=== PATIENT | female | born 1985 | race Caucasian/White ===

== ENCOUNTER 2018-01-03 09:53 | Emergency (ER) | payer MEDICARE, MEDICAID ==
[2018-01-03] MEDS ORDERED: NS 0.9% 1000 ML* 1,000 ML IV ONE ×2 (10:48→15:07)
[2018-01-03 15:40] LABS: EGFR Non-African American 90.1 (>60)
[2018-01-03 19:56] VITALS: BP 107/64
--- NOTE | 2018-01-03 21:17 | ED ---
Queenie Case Nilda, scribed for Giovanni Neff MD on 01/03/18 at 1015 . Substance Abuse/Use - HPI Summary HPI Summary: This patient is a 32 year old F BIBA with a chief complaint of accidentally taking morning medications twice, once at 0730 and another round at 0830 this morning. Pt normally takes Depakote (1500mg), Lamictal (200mg), and Trileptal ( approx. 300 mg) once every morning, but unintentionally doubled this dose today. Patient notes these medications are prescribed by her psychiatrist solely as mood stabilizers. The patient rates the pain 0/10 in severity. Patient reports blurry vision and GARCIA. Patient denies CP, palpitations, SOB, HI, SI, depression at this moment, fever, chills, and N/V/D. Symptoms aggravated by accidental medication noncompliance and alleviated by nothing. Pt states she contacted Poison Control REFLOW OPERATOR, and they recommended she come to ED. Pt states she last saw psychiatrist 2 weeks ago. NKDA. MARSH is now. - History Of Current Complaint Stated Complaint: OVERDOSE Time Seen by Provider: 01/03/18 10:06 Hx Obtained From: Patient Onset/Duration of Drug/ETOH Abuse: Hours Ingestion History: Type/Name Of Drug - Depakote (1500mg), Limictal (200mg), and Trileptal (approx. 300 mg), Amount Ingested - Depakote (1500mg), Limictal (200mg ), and Trileptal (approx. 300 mg), Approximate Time Of Ingestion - 0730 and 0830 Overdose Characteristics: Oral Aggravating Factor(s): Medication Non-compliance - accidental Alleviating Factor(s): Nothing Associated Signs And Symptoms: Unintentional OTC, Other: - reports blurry vision and GARCIA; negative CP, palpitations, SOB, HI, SI, depression at this moment , fever, chills, and N/V/D. - Allergies/Home Medications Allergies/Adverse Reactions: Allergies Allergy/AdvReac Type Severity Reaction Status Date / Time No Known Allergies Allergy Verified 01/03/18 11:10 Home Medications: Home Medications Divalproex ER TAB(*) [Depakote ER TAB(*)] 1,500 mg PO DAILY 01/03/18 [History Confirmed 01/03/18] OXcarbazepine TAB(*) [Trileptal 300 mg TAB(*)] 300 mg PO QPM 01/03/18 [History Confirmed 01/03/18] OXcarbazepine TAB(*) [Trileptal 300 mg TAB(*)] 600 mg PO QAM 01/03/18 [History Confirmed 01/03/18] lamoTRIgine TAB(*) [LaMICtal TAB(*)] 200 mg PO DAILY 01/03/18 [History Confirmed 01/03/18] PMH/Surg Hx/FS Hx/Imm Hx Sensory History: Denies: Hx Legally Blind EENT History: Denies: Hx Deafness - Family History Known Family History: Negative: Cardiac Disease, Hypertension - Social History Hx Substance Use: Yes Substance Use Type: Reports: Marijuana Hx Tobacco Use: Yes Smoking Status (MU): Light Every Day Tobacco Smoker Review of Systems Negative: Fever, Chills Positive: Blurred Vision Negative: Palpitations, Chest Pain Negative: Shortness Of Breath Negative: Vomiting, Diarrhea, Nausea Neurological: Other - accidental OD Positive: Headache Psychological: Other - negative HI, SI Negative: Depressed All Other Systems Reviewed And Are Negative: Yes Physical Exam - Summary Physical Exam Summary: GENERAL: Patient is a well developed and nourished F who is lying comfortable in the stretcher. Patient is not in any acute respiratory distress. HEAD AND FACE: Normocephalic EYES: PERRLA, EOMI x 2. EARS: Hearing grossly intact. MOUTH: Oropharynx within normal limits. NECK: Supple, trachea is midline, no adenopathy, no JVD, no carotid bruit. CHEST: Symmetric, no tenderness at palpation LUNGS: Clear to auscultation bilaterally. No wheezing or crackles. CVS: Regular rate and rhythm, S1 and S2 present, no murmurs or gallops appreciated. ABDOMEN: Soft, non-tender. Bowel sounds are normal. No abdominal abnormal pulsations. EXTREMITIES: Full ROM in all major joints, no edema, no cyanosis or clubbing. NEURO: Alert and oriented x 3. No acute neurological deficits. Speech is normal and follows commands. Cranial nerve II-XII intact. No dysmetria on finger to nose PSYCH: Normal affect. Linear thought process and content. No SI or HI. SKIN: Dry and warm Triage Information Reviewed: Yes Vital Signs On Initial Exam: Initial Vitals Temp Pulse Resp BP Pulse Ox 98.5 F 92 16 110/75 100 01/03/18 10:04 01/03/18 10:04 01/03/18 10:04 01/03/18 10:04 01/03/18 10:04 Vital Signs Reviewed: Yes Diagnostics - Laboratory Result Diagrams: 01/03/18 15:14 Lab Statement: Any lab studies that have been ordered have been reviewed, and results considered in the medical decision making process. - EKG 1103 Cardiac Rate: NL EKG Rhythm: Sinus Rhythm - 78 bpm EKG Interpretation: nml intervals Re-Evaluation - Re-Evaluation First Eval Re-Evaluation Time: 11:48 Change: Improved Comment: Pt remains neurologically intact, and reports feeling better from numbness/GARCIA sensation. Second Eval Re-Evaluation Time: 19:40 Comment: Lab results discussed with pt in great detail. Pt was once again asked if she is suicidal or homicidal and she completely denies it. Course/Dx - Course Assessment/Plan: This patient is a 32 year old F BIBA with a chief complaint of accidentally taking morning medications twice, once at 0730 and another round at 0830 this morning. Pt normally takes Depakote (1500mg), Lamictal (200mg), and Trileptal (approx. 300 mg) once every morning. Patient notes these medications are prescribed by her psychiatrist as solely mood stabilizers. The patient rates the pain 0/10 in severity. Patient reports blurry vision and GARCIA. Patient denies CP, palpitations, SOB, HI, SI, depression at this moment, fever, chills, and N/V/D. Symptoms aggravated by accidental medication noncompliance and alleviated by nothing. Pt states she contacted Poison Control REFLOW OPERATOR, and they recommended she come to ED. Pt states she last saw psychiatrist 2 weeks ago. NKDA. MARTAMP is now. An EKG reveals NSR, 78bpm, normal intervals. At approx 1045 , Poison control was consulted and they recommended getting a Valproic acid level, Trileptal level, ammonia level, EKG, and IV fluids. Valproic acid was elevated at 127. Poison control was re-contacted and they recommended repeat Valproic acid in six hours from previous. They also wanted us to add electrolytes, aspirin, Tylenol, and ETOH levels as well as more IV fluids and MHE because the Valproic acid is higher than what it should be for just an extra dose. Upon re-evaluation, pt is hemodynamically stable. Repeat Valproic acid lvl normalized to 96. Nurse Kalpana discussed with poison control who closed the case and states pt is safe to go home from their stand point. Results discussed with pt in great details. She will f/u with her psychiatrist. Pt was once again asked if she is suicidal or homicidal and she completely denies it. - Diagnoses Provider Diagnoses: Accidental overdose Discharge - Sign-Out/Discharge Documenting (check all that apply): Discharge - home - Discharge Plan Condition: Stable Disposition: HOME Patient Education Materials: Adult Overdose (ED) Referrals: [facility] PHYSICIAN REFERRAL [Outside] Additional Instructions: Follow up with your psychiatrist in 1-3 days. RETURN TO THE EMERGENCY DEPARTMENT FOR CHANGING OR WORSENING SYMPTOMS. The documentation as recorded by the Queenie bhakta Nilda accurately reflects the service I personally performed and the decisions made by me, Candida Neff MD.
== END 2018-01-03 20:00 | disposition home or self-care (01) ==
LOC: ED 09:53
DX: T42.6X1A Poisoning by other antiepileptic and sedative-hypnotic drugs, accidental (unintentional), initial encounter (principal); R51 Headache; H53.8 Other visual disturbances; Y92.009 Unspecified place in unspecified non-institutional (private) residence as the place of occurrence of the external cause; Z32.02 Encounter for pregnancy test, result negative; F17.210 Nicotine dependence, cigarettes, uncomplicated
CPT/HCPCS: 36415; 80048; 80076; 80164; 80183; 80320; 80329; 82140; 84702; 93005; 96360; 96361; 99284; G0480

== ENCOUNTER 2018-04-23 12:55 | Emergency (ER) | payer MEDICARE, MEDICAID ==
[2018-04-23 14:33] LABS: ABS Basophils 0 10^3/ul (0-0.2); ABS Eosinophils 0 10^3/ul (0-0.6); ABS Monocytes 0.6 10^3/ul (0-0.8); ABS Neutrophils 5.2 10^3/ul (1.5-7.7); ABS Nucleated RBC 0 10^3/ul; Eosinophil % 0.4 % (0-6); Hematocrit 43 % (35-47); Hemoglobin 14.6 g/dl (12.0-16.0); Lymphocyte % 25.6 % (25-47); Mean Corpuscular HGB Conc 34 g/dl (31-36); Mean Corpuscular Hemoglobin 33 pg (27-31); Mean Corpuscular Volume 97 fL (80-97); Mean Platelet Volume 8.1 um3 (7.4-10.4); Nucleated Red Blood Cells % 0; Platelet Count 284 10^3/ul (150-450); Red Blood Count 4.39 10^6/ul (4.00-5.40); Red Cell Distribution Width 12 % (10.5-15); White Blood Count 7.9 10^3/ul (3.5-10.8)
--- NOTE | 2018-04-23 14:45 | ED ---
Abdominal Pain/Female - HPI Summary HPI Summary: This is yony Piña documenting for attending Dr. Candida MD. The patient is a 32 y/o F presenting to [facility] c/o stabbing bilateral inguinal abd pain starting two weeks ago. The pain is similar to the pain she had when she had her Mirena IUD placed in January at [facility]. She had a follow up to make sure the IUD was placed correctly, and she had STD testing done. She visited Urgent Care at time of onset, but the pain has persisted. She states that cultures were not done, and she had a test that was negative. The pain is rated 6/10 in severity. She denies fevers, chills, vaginal discharge , nausea, and vomiting. She was last sexually active two weeks ago and hasn't been active since onset of pain. She smokes a half a pack of cigarettes a day but does not smoke recreational drugs or drink EtOH. - History of Current Complaint Chief Complaint: EDAbdPain Stated Complaint: IUD PAINFUL Time Seen by Provider: 04/23/18 14:01 Hx Obtained From: Patient Onset/Duration: Sudden Onset, Lasting Weeks - two weeks, Still Present Timing: Constant Severity Initially: Moderate Severity Currently: Moderate Pain Intensity: 6 Pain Scale Used: 0-10 Numeric Location: Groin - bilateral Radiates: No Character: Sharp, Other: - stabbing Aggravating Factor(s): Nothing Alleviating Factor(s): Nothing Associated Signs and Symptoms: Positive: Negative - chills. Negative: Fever, Vaginal Discharge, Nausea, Vomiting Allergies/Adverse Reactions: Allergies Allergy/AdvReac Type Severity Reaction Status Date / Time No Known Allergies Allergy Verified 04/23/18 14:41 Home Medications: Home Medications Vistaril 25 mg PO TID PRN 04/23/18 [History Confirmed 04/23/18] PMH/Surg Hx/FS Hx/Imm Hx Sensory History: Denies: Hx Legally Blind, Hx Deafness Opthamlomology History: Denies: Hx Legally Blind EENT History: Denies: Hx Deafness Infectious Disease History: No Infectious Disease History: Denies: Traveled Outside the [place] in Last 30 Days - Family History Known Family History: Negative: Cardiac Disease, Hypertension - Social History Alcohol Use: None Hx Substance Use: Yes Substance Use Type: Reports: Marijuana Hx Tobacco Use: Yes Smoking Status (MU): Heavy Every Day Tobacco Smoker Review of Systems Negative: Fever, Chills Positive: Abdominal Pain - bilateral inguinal pain. Negative: Vomiting, Nausea Negative: discharge All Other Systems Reviewed And Are Negative: Yes Physical Exam - Summary Physical Exam Summary: GENERAL: Patient is a well developed and nourished female who is lying comfortable in the stretcher. Patient is not in any acute respiratory distress. HEAD AND FACE: Normocephalic EYES: PERRLA, EOMI x 2. EARS: Hearing grossly intact. MOUTH: Oropharynx within normal limits. NECK: Supple, trachea is midline, no adenopathy, no JVD, no carotid bruit. CHEST: Symmetric, no tenderness at palpation LUNGS: Clear to auscultation bilaterally. No wheezing or crackles. CVS: Regular rate and rhythm, S1 and S2 present, no murmurs or gallops appreciated. ABDOMEN: Soft, non-tender. Bowel sounds are normal. No abdominal abnormal pulsations. : PATIENT DECLINED EXTREMITIES: Full ROM in all major joints, no edema, no cyanosis or clubbing. NEURO: Alert and oriented x 3. No acute neurological deficits. Speech is normal and follows commands. SKIN: Dry and warm Triage Information Reviewed: Yes Vital Signs On Initial Exam: Initial Vitals Temp Pulse Resp BP Pulse Ox 98.8 F 100 14 110/81 100 04/23/18 13:00 04/23/18 13:00 04/23/18 13:00 04/23/18 13:00 04/23/18 13:00 Vital Signs Reviewed: Yes Diagnostics - Vital Signs Vital Signs Temp Pulse Resp BP Pulse Ox 04/23/18 13:00 98.8 F 100 14 110/81 100 - Laboratory Lab Results: Lab Results 04/23/18 Range/Units 14:22 WBC 7.9 (3.5-10.8) 10^3/ul RBC 4.39 (4.00-5.40) 10^6/ul Hgb 14.6 (12.0-16.0) g/dl Hct 43 (35-47) % MCV 97 (80-97) fL MCH 33 H (27-31) pg MCHC 34 (31-36) g/dl RDW 12 (10.5-15) % Plt Count 284 (150-450) 10^3/ul MPV 8.1 (7.4-10.4) um3 Neut % (Auto) 66.0 (38-83) % Lymph % (Auto) 25.6 (25-47) % Pepin % (Auto) 7.6 H (0-7) % Eos % (Auto) 0.4 (0-6) % Baso % (Auto) 0.4 (0-2) % Absolute Neuts (auto) 5.2 (1.5-7.7) 10^3/ul Absolute Lymphs (auto) 2.0 (1.0-4.8) 10^3/ul Absolute Monos (auto) 0.6 (0-0.8) 10^3/ul Absolute Eos (auto) 0 (0-0.6) 10^3/ul Absolute Basos (auto) 0 (0-0.2) 10^3/ul Absolute Nucleated RBC 0 10^3/ul Nucleated RBC % 0 Result Diagrams: 04/23/18 14:22 04/23/18 14:22 Lab Statement: Any lab studies that have been ordered have been reviewed, and results considered in the medical decision making process. - Ultrasound No standard instances Ultrasound Interpretation: Positive (See Comments) - Pelvic US: 1. IUD appears in appropriate position in the uterine cavity. 2. 2.9 cm low suspicion based on small size structure at the RIGHT ovary most suspicious for a hemorrhagic cyst or corpus luteum. 3. Physiologic small volume of free fluid in the cul-de- sac. ED physician has reviewed this report. Ultrasound Interpretation Completed By: Radiologist Re-Evaluation - Re-Evaluation First Eval Re-Evaluation Time: 17:00 Change: Unchanged Comment: Pt denies pelvic exam. She will follow up with her recovery operator. Pt is agreeable with this plan. Abdominal Pain Fem Course/Dx - Course Course Of Treatment: The patient is a 32 y/o F presenting to [facility] c/o stabbing bilateral inguinal pain starting two weeks ago. The pt had a Mirena IUD placed in January 2018 where she experienced similar pain to her current symptoms. She presented to Urgent Care at time of onset, but she states that she only had a test done. She denies fevers, chills, vaginal discharge, nausea, and vomiting. She was last sexually active two weeks ago and hasn't been active since onset of pain. She smokes a half a pack of cigarettes a day but does not smoke recreational drugs or drink EtOH. Medications reviewed. No allergies noted. In the ED course, bloodwork is unremarkable. UA is negative. She denied pelvic exam. Pelvis US reveals possible hemorrhagic cyst or corpus luteum on right ovary. Pt is diagnosed with ovarian cyst. She will be discharged home with a follow up with gynecology. Return precautions discussed. Pt is agreeable with this plan. - Diagnoses Provider Diagnoses: Ovarian cyst Discharge - Sign-Out/Discharge Documenting (check all that apply): Patient Departure - Pt will be discharged home. - Discharge Plan Condition: Stable Disposition: HOME Patient Education Materials: Ovarian Cyst (ED) Referrals: Johnathon Gaytan MD [Primary Care Provider] - Lisa Reeder MD [Medical Doctor] - 2 Days Additional Instructions: Follow up with Dr. Reeder, BOAT DOCK OPERATOR, or your own preferred recovery operator in 2-3 days. Return to the emergency department for any new or worsening symptoms. - Billing Disposition and Condition Condition: STABLE Disposition: Home
[2018-04-23 14:49] LABS: EGFR Non-African American 75.9 (>60)
--- NOTE | 2018-04-23 15:26 | RAD ---
Indication: Pelvic pain. IUD in place. Comparison: No relevant prior exams available on the [facility] PACS for comparison. Technique: Transabdominal pelvic ultrasound. Report: Unremarkable 8.7 x 5.4 x 4.2 cm anteverted uterus. IUD appears in appropriate position in the uterine cavity. 1.0 cm normal thickness endometrium. Physiologic small volume of free fluid in the cul-de-sac. 4.4 x 2.9 x 4.6 cm RIGHT ovary with documented vascular flow is remarkable for a 2.9 cm maximum dimension moderately well-circumscribed structure devoid of intrinsic vascularity most suspicious for a hemorrhagic cyst or corpus luteum. 3.7 x 2.0 x 4.5 cm LEFT ovary with documented vascular flow is remarkable for small follicles only. No visualized extra ovarian adnexal region lesions evident. IMPRESSION: #. IUD appears in appropriate position in the uterine cavity. #. 2.9 cm low suspicion based on small size structure at the RIGHT ovary most suspicious for a hemorrhagic cyst or corpus luteum. #. Physiologic small volume of free fluid in the cul-de-sac.
[2018-04-23 15:55] LABS: Urine Appearance Clear; Urine Blood Negative (Negative); Urine Color Straw; Urine Ketones Negative (Negative); Urine Protein Negative (Negative); Urine Specific Gravity 1.006 (1.010-1.030); Urine Urobilinogen Negative (Negative)
[2018-04-23 17:15] VITALS: BP 121/86
== END 2018-04-23 17:14 | disposition home or self-care (01) ==
LOC: ED 12:55
DX: N83.201 Unspecified ovarian cyst, right side (principal); Z97.5 Presence of (intrauterine) contraceptive device; F17.200 Nicotine dependence, unspecified, uncomplicated
CPT/HCPCS: 36415; 76856; 80053; 81003; 83690; 84702; 85025; 99282

== ENCOUNTER 2019-11-05 19:20 | Emergency (ER) | payer MEDICARE, MEDICAID ==
[2019-11-05] MEDS ORDERED: Tetan/Diph/Pertus SYR(Tdap)* 0.5 ML SYR(BOOSTRIX) use SYR contains LATEX IM ONE (19:58)
--- NOTE | 2019-11-05 19:58 | ED ---
Laceration/Wound HPI - HPI Summary HPI Summary: Patient complains of laceration to distal third digit of right hand while cutting vegetables today. Tetanus status up-to-date. Denies any other pain, injury or symptoms. - History of Current Complaint Stated Complaint: RIGHT MIDDLE FINGER INJURY PER PT Time Seen by Provider: 11/05/19 19:56 Hx Obtained From: Patient Mechanism of Injury: Sharp/Blunt Trauma Onset Severity: Moderate Current Severity: Moderate Pain Intensity: 5 Pain Scale Used: 0-10 Numeric Associated Signs & Symptoms: Negative - Allergy/Home Medications Allergies/Adverse Reactions: Allergies Allergy/AdvReac Type Severity Reaction Status Date / Time No Known Allergies Allergy Verified 11/05/19 19:24 PMH/Surg Hx/FS Hx/Imm Hx Endocrine/Hematology History: Denies: Hx Anticoagulant Therapy Cardiovascular History: Denies: Hx Pacemaker/ICD History: Denies: Hx Dialysis Sensory History: Denies: Hx Legally Blind, Hx Deafness Opthamlomology History: Denies: Hx Legally Blind EENT History: Denies: Hx Deafness Neurological History: Denies: Hx Dementia Infectious Disease History: No Infectious Disease History: Denies: Traveled Outside the [place] in Last 30 Days - Family History Known Family History: Negative: Cardiac Disease, Hypertension - Social History Alcohol Use: None Hx Substance Use: Yes Substance Use Type: Reports: Marijuana Hx Tobacco Use: Yes Smoking Status (MU): Heavy Every Day Tobacco Smoker Review of Systems Constitutional: Negative Eyes: Negative ENT: Negative Cardiovascular: Negative Respiratory: Negative Gastrointestinal: Negative Genitourinary: Negative Musculoskeletal: Negative Skin: Other Neurological: Negative Psychological: Normal All Other Systems Reviewed And Are Negative: Yes Physical Exam Triage Information Reviewed: Yes Vital Signs On Initial Exam: Initial Vitals Temp Pulse Resp BP Pulse Ox 98.3 F 109 15 142/90 100 11/05/19 19:23 11/05/19 19:23 11/05/19 19:23 11/05/19 19:23 11/05/19 19:23 Vital Signs Reviewed: Yes Appearance: Positive: Well-Appearing Skin: Positive: Warm Head/Face: Positive: Normal Head/Face Inspection Eyes: Positive: Normal Neck: Positive: Supple Respiratory/Lung Sounds: Positive: Clear to Auscultation Cardiovascular: Positive: Normal Abdomen Description: Positive: Nontender Musculoskeletal: Positive: Normal Neurological: Positive: Normal Psychiatric: Positive: Normal AVPU Assessment: Alert - [place] Coma Scale Best Eye Response: 4 - Spontaneous Best Motor Response: 6 - Obeys Commands Best Verbal Response: 5 - Oriented Coma Scale Total: 15 Procedures - Sedation Patient Received Moderate/Deep Sedation with Procedure: No - Laceration/Wound Repair 1 Location: upper extremity - distal third digit of right hand Description: Linear Length, Depth and Shape: 1.5cm x .25cm Betadine Prep?: No Irrigated w/ Saline (ccs): 200 Laceration/Wound Explored: clean Closure: Skin Adhesive, SteriStrips Debridement: minimal Layer Closure?: No Sterile Dressing Applied?: No Diagnostics - Vital Signs Vital Signs Temp Pulse Resp BP Pulse Ox 11/05/19 19:23 98.3 F 109 15 142/90 100 - Laboratory Lab Statement: Any lab studies that have been ordered have been reviewed, and results considered in the medical decision making process. Laceration Repair Course/Dx - Course Course Of Treatment: Patient complains of laceration to distal third digit of right hand while cutting vegetables today. Tetanus status up-to-date. Denies any other pain, injury or symptoms. Vital signs within normal limits. Wound cleaned and approximated with skin adhesive and Steri-Strips. - Clinical Impression Provider Diagnoses: Laceration Discharge ED - Sign-Out/Discharge Documenting (check all that apply): Patient Departure - Discharge Plan Condition: Stable Disposition: HOME Patient Education Materials: Finger Laceration (ED), Skin Adhesive Care (ED) Referrals: Johnathon Gaytan MD [Primary Care Provider] - Additional Instructions: Starting tomorrow you may wash gently with warm running water and soap. Keep covered and protected when not washing. Follow-up with primary care. Return to the ED for any new or worsening symptoms. - Billing Disposition and Condition Condition: STABLE Disposition: Home
[2019-11-05 21:38] VITALS: BP 102/67
== END 2019-11-05 21:36 | disposition home or self-care (01) ==
LOC: ED 19:20
DX: S61.212A Laceration without foreign body of right middle finger without damage to nail, initial encounter (principal); W26.9XXA Contact with unspecified sharp object(s), initial encounter; Y93.G1 Activity, food preparation and clean up; Y92.9 Unspecified place or not applicable; Z23 Encounter for immunization; F17.200 Nicotine dependence, unspecified, uncomplicated
CPT/HCPCS: 12001; 90471; 90715; 99282